=== PATIENT | male | born 1960 | race Caucasian/White ===

== ENCOUNTER → 2022-05-18 08:54 | Outpatient (CLI) | payer OTHER, SELFPAY ==
--- NOTE | ~2022-05-18 | MR_ITS ---
MRI of the right knee Clinical history: Pain Technique: Coronal proton density and proton density-weighted images, sagittal proton-density and T2 fat-sat images, and axial proton-density fat-saturated images were acquired. Findings: Anterior and posterior cruciate ligaments are intact. Medial collateral ligament and the la teral collateral ligament complex are intact. Popliteus tendon is intact. There is complex, predominantly horizontal tearing of the posterior horn and body of the medial menis cus. Possible very small developing parameniscal cyst measuring 4 mm. No lateral meniscal tear seen. Articular cartilage is mildly thinned along the medial femoral condyle. Cartilage in the lateral comp artment and along the femoral trochlea is intact. There is mild chondromalacia patella. Extensor mechanism is intact. Minimal joint effusion present. No Browne's cyst. Impression: Complex, predominantly horizontal tearing of the posterior horn and body of the medial meniscus, with possible very small developing 4 mm para-meniscal cyst. 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 Reviewed, dictated and finalized at [facility]. Impression: Complex, predominantly horizontal tearing of the posterior horn and body of the medial meniscus, with possible very small developing 4 mm para-meniscal cyst. 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
== END ==
PROVIDERS: PCP Family Medicine; Visit Provider Orthopaedic Surgery
DX: S83.231A Complex tear of medial meniscus, current injury, right knee, initial encounter (principal); X58.XXXA Exposure to other specified factors, initial encounter
CPT/HCPCS: 73721